=== PATIENT | male | born 1935 | race Caucasian/White ===

== ENCOUNTER 2017-07-29 07:05 | Day surgery (SDC) | payer MEDICARE ==
--- NOTE | 2017-07-22 16:03 | HP ---
AMENDED REPORT NOW INCLUDES COSIGNER DESIGNATION - ESIGNED BEFORE ADJUSTMENT CC: Willie Fields III, MD * HISTORY AND PHYSICAL: DATE OF ADMISSION/SURGERY: 07/29/17 ATTENDING SURGEON: Les Barker MD * (DICTATED BY JOVANY MARTIN) PRIMARY CARE PHYSICIAN: Willie Fields III, MD CHIEF COMPLAINT: Left inguinal hernia. HISTORY OF PRESENT ILLNESS: Mr. Mercado is a pleasant 81-year-old gentleman who is well known to our practice from prior hernia repair. He had a right inguinal hernia repaired about a year and a half ago by Dr. Barker that went very well. The patient states that he was in his usual state of health until 2 weeks ago when he noticed increasing bulge on the left side of his groin. He actually denies feeling any pain; however, he felt a popping sensation every time he coughed, sneezed or bent over. He noticed increasing bulge in the area as well that he is able to push back inside with no significant pain noted. He denies any nausea, vomiting, changes in the bowel habits. He does relate these symptoms to exactly the same presentation he had a year and a half ago when he had his right inguinal hernia repair done. He, otherwise is a remarkably healthy 81-year-old gentleman despite his past medical history that includes prostate cancer as well as lymphoma. He was seen earlier this week by Dr. Barker and found to have reducible left inguinal hernia on exam for which he was scheduled on a later date for elective hernia repair. PAST MEDICAL HISTORY: Significant for: 1. Remote history of prostate cancer for which he had prostatectomy as well as radiation therapy. 2. He also has a history of lymphoma for which he received chemotherapy as well. 3. Also, he has history of hypothyroidism. 4. Degenerative joint disease. 5. Impaired fasting glycemia. PAST SURGICAL HISTORY: Significant for prostatectomy. CURRENT MEDICATIONS: His medications at home include levothyroxine 100 mcg once daily. ALLERGIES: He has no known drug allergies. FAMILY HISTORY: He denies any family history of colorectal malignancies. SOCIAL HISTORY: The patient never smoked. 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 He occasionally consumes alcohol. REVIEW OF SYSTEMS: See HPI, otherwise negative. He denies any headache, dizziness, blurred vision, or double vision. No sore throat, cough, shortness of breath, or palpitation. Denies chest pain, back pain, flank pain, dysuria, hematuria, or urinary frequency. He admits to left inguinal hernia, but denies any nausea, vomiting, no recent changes in bowel habits. No fever, chills, night sweats, or recent weight loss. PHYSICAL EXAMINATION GENERAL: He is an extremely pleasant healthy-appearing elderly gentleman, in no acute distress or discomfort at the time of the visit. VITAL SIGNS: His vitals today revealed blood pressure of 110/70, pulse of 64, temperature of 97.8, and O2 sat of 97% on room air. HEENT: Sclerae anicteric. PERRLA. EOMs intact. Oropharynx is pink and moist with no exudate. NECK: Supple. Trachea midline. No cervical adenopathy, thyromegaly, or JVD. LUNGS: Clear to auscultation bilaterally. No rales, wheezes, or rhonchi. HEART: Regular rate and rhythm. Normal S1 and S2 without rubs, murmurs, or gallops. BACK: Normal curvature. No CVA tenderness. ABDOMEN: Soft, nontender, and nondistended. There is a left inguinal hernia noted with the patient lying down that was easily reducible and nontender. Again, the patient was examined in a standing position and hernia was noted again, moderate size, easily reducible and nontender. There is no scrotal swelling, tenderness or ecchymosis. No other hernias or masses noted. There is an old scar at lower midline from prior prostatectomy with no evidence of ventral hernia. NEUROLOGIC: Grossly intact. EXTREMITIES: Without cyanosis, clubbing, or edema. RECTAL: Deferred at this time. IMPRESSION: An elderly gentleman with reducible left inguinal hernia. PLAN: The patient is scheduled for an open left inguinal hernia repair with mesh by Dr. Barker. The rationale, indications, risks, and benefits of surgery were discussed with him today. Risks include but not limited to infection, bleeding, or injury to adjacent structures. The patient seems to understand and wishes to proceed as outlined. We will follow him up one week postoperatively. JOVANY MARTIN [id number]/[facility] #: [id number] [facility] HOSPITALDavis
[~2017-07-29 07:05] MED LIST: Buffered Lidocaine 0.9% SYRIN* 5 ML/SYR SYRINGE INTRADERM ONE; Ibuprofen TAB* 400 MG PO ONE; Sodium Citrate/Citric Acid* 15 ML UDC PO ONE
[2017-07-29] MEDS ORDERED: Sodium Citrate/Citric Acid* 15 ML UDC ONE (07:10)
[2017-07-29] MEDS ORDERED: Buffered Lidocaine 0.9% SYRIN* 5 ML/SYR SYRINGE ONE (07:10)
[2017-07-29] MEDS ORDERED: Ibuprofen TAB* 400 MG ONE (07:10)
[2017-07-29] MEDS ORDERED: ceFAZolin 2 GM PREMIX (*) 50 ML IVPB ONE (07:10)
[2017-07-29] MEDS ORDERED: Lidocaine 1% MPF wEPI 200,000* 30 ML SDV ONE (08:17)
[2017-07-29] MEDS ORDERED: Bupivacaine 0.5% SDV PF* 30 ML VIAL ONE (08:18)
[2017-07-29] MEDS ORDERED: fentaNYL* 50 MCG/ML 2 ML VIAL (100 MCG VIAL) ONE (08:47)
[2017-07-29] MEDS ORDERED: Midazolam* 1 MG/ML 5 ML VIAL (5 MG) ONE (08:47)
[2017-07-29] MEDS ORDERED: HYDROcodone/ACETAMIN 5-325 MG* 1 TAB PO PRN (09:40)
--- NOTE | 2017-07-29 09:40 | PN ---
Progress Note - Progress Note Date of Service: 07/29/17 Note: Brief Operative Note: Preop Dx: Left inguinal hernia Postop Dx: same Procedure: open repair LIH w/ mesh Surgeon: Lucero Asst: JOVANY Bruce; PAO Castro Anesthesia: local MAC EBL: none Fluids: 750 ml RL Specimen: Drains: none Findings: dictated
[2017-07-29 10:31] VITALS: BP 146/70
--- NOTE | 2017-07-29 22:26 | OP ---
CC: Dr. Fields * DATE OF OPERATION: 07/29/17 - SDS DATE OF : 31 SURGEON: Les Barker MD. EXPRESS MANAGER: JOVANY Leiva. ANESTHESIOLOGIST: Dr. Collins. ANESTHESIA: LMAC anesthesia. PRE-OP DIAGNOSIS: Left inguinal hernia. POST-OP DIAGNOSIS: Left inguinal hernia. OPERATIVE PROCEDURE: Open repair of left inguinal hernia with mesh. DESCRIPTION OF PROCEDURE: The patient was supine on the operating room table. After adequate intravenous sedation, compression stockings, Che Hugger warmer and intravenous antibiotics, the left groin was clipped and prepped with antiseptic, draped in a sterile fashion. Local infiltrative anesthesia was administered. Approximately 2.5-inch incision was created and carried down to the tissue layers through the external oblique, which was opened in the direction of its fibers. Cord structures were encircled with a Shiva drain and tented upward. Indirect space hernia was identified, dissected free, and reduced and a cone mesh plug was placed into the internal ring, sutured there with 2-0 Polysorb. A second piece of mesh was placed over the inguinal floor, sutured at the tubercle. Tails were split, brought around the cord structures, and tacked down laterally. External oblique was closed overtop with 2-0 Polysorb, Fili' s with 3-0 Polysorb, skin with 4-0 Surgipro followed by a sterile dressing. He tolerated the procedure well, was awakened and brought to Recovery in good condition. No complications. No drains. Estimated blood loss was less than 20 mL. [id number]/[facility] #: [id number] [facility]
== END 2017-07-29 10:47 | disposition home or self-care (01) ==
LOC: OR 07:05
PROVIDERS: ATTEND Surgery
DX: K40.90 Unilateral inguinal hernia, without obstruction or gangrene, not specified as recurrent (principal); E03.9 Hypothyroidism, unspecified; Z85.46 Personal history of malignant neoplasm of prostate; M19.90 Unspecified osteoarthritis, unspecified site; Z85.72 Personal history of non-Hodgkin lymphomas
CPT/HCPCS: A9270-GY; C1781; J0690; J2001; J2250; J3010

== ENCOUNTER 2019-05-02 08:51 | Emergency (ER) | payer MEDICARE ==
[2019-05-02 09:00] VITALS: BP 141/77
--- NOTE | 2019-05-02 10:38 | UC ---
Skin Complaint HPI - HPI Summary HPI Summary: 83 y/o male presents to the urgent care c/o rash x 1 week spreading to abd and buttocks - History of Current Complaint Chief Complaint: UCRash Time Seen by Provider: 05/02/19 10:35 Stated Complaint: RASH Hx Obtained From: Patient Onset/Duration: Sudden Onset, Lasting Weeks - 1 week, Still Present, Worse Since - 2 days w/ a lot of itchiness Skin Exposure Onset/Duration: Weeks Ago - 1 weeks ago outside w/ bushes Timing: Constant Onset Severity: Mild Current Severity: Moderate Pain Intensity: 1 - tederness in the abdomen rash Pain Scale Used: 0-10 Numeric Location: Diffuse - B/L arms, abdomen and buttocks Character: Pruritus, Hives, Redness Aggravating Factor(s): Touch Alleviating Factor(s): Cold, OTC Creams/Salves Associated Signs & Symptoms: Positive: Rash - B/l arms abdomen, buttocks, Tenderness. Negative: Fever, Chills, Drainage, Bruising Related History: Possible Reaction to: Environmental Exposure - Allergy/Home Medications Allergies/Adverse Reactions: Allergies Allergy/AdvReac Type Severity Reaction Status Date / Time No Known Allergies Allergy Verified 05/02/19 09:01 PMH/Surg Hx/FS Hx/Imm Hx Previously Healthy: Yes Endocrine History: Hypothyroidism Cancer History: Prostate Cancer Other Cancer History: Non hodgekin lymphoma - Surgical History Surgical History: Yes Surgery Procedure, Year, and Place: PROSTATECTOMY 2001 [facility] [place] ;. CATARACTS REMOVED [place] ;. HERNIA REPAIR [facility] [place] ;. [place] [facility] ; - Family History Known Family History: Negative: Cardiac Disease, Hypertension, Diabetes - Social History Occupation: Retired Lives: With Family Alcohol Use: Weekly Alcohol Amount: 2 BEERS PER DAY Substance Use Type: None Smoking Status (MU): Never Smoked Tobacco Have You Smoked in the Last Year: No Review of Systems All Other Systems Reviewed And Are Negative: Yes Constitutional: Positive: Negative Skin: Positive: Rash - itchy rash in B/l arms, abdomen and buttocks Eyes: Positive: Negative ENT: Positive: Negative Respiratory: Positive: Negative Cardiovascular: Positive: Negative Gastrointestinal: Positive: Negative Genitourinary: Positive: Negative Motor: Positive: Negative Neurovascular: Positive: Negative Musculoskeletal: Positive: Negative Neurological: Positive: Negative Psychological: Positive: Negative Is Patient Immunocompromised?: No Physical Exam - Summary Physical Exam Summary: Vital Signs Reviewed: Yes General: well appearing, well nourished in no acute apparent pain distress, sitting comfortably on examining table Eye Exam: Normal Eyes: Positive: Conjunctiva Clear - PERRLA< EOMI, fundi grossly normal ENT: Positive: Normal ENT inspection, Hearing grossly normal, Pharynx normal, TMs normal Neck: Positive: Supple, Nontender, No Lymphadenopathy Respiratory: Positive: Chest non-tender, Lungs clear, Normal breath sounds, No respiratory distress Cardiovascular: Positive: RRR, No Murmur, Pulses Normal, Brisk Capillary Refill Abdomen Description: Positive: Nontender, No Organomegaly, Soft. Negative: CVA Tenderness (R), CVA Tenderness (L) Bowel Sounds: Positive: Present Musculoskeletal: Positive: Strength Intact, ROM Intact, No Edema Neurological: Positive: Alert, Muscle Tone Normal Psychological Exam: Normal Skin: Positive: Positive B/L arms and buttocks w/ scattered erythematous discrete papules and vesicles, particularly in linear streaks w/ mild signs of excoriation, no drainage observed, non tender to palpation. Positive left side of abdomen w/ similar rash but co-infected w/ erythematous patch w/ indistinct borders, warm and tender to palpation, no drainage observed. pulses WNL, capillary refill brisk, sensation WNL. Triage Information Reviewed: Yes Vital Signs: Initial Vital Signs Temp 98.8 F 05/02/19 08:57 Pulse 78 05/02/19 08:57 Resp 17 05/02/19 08:57 BP 141/77 05/02/19 08:57 Pulse Ox 100 05/02/19 08:57 Course/Dx - Differential Diagnoses - Skin Complaint Differential Diagnoses: Abscess, Cellulitis, Contact Dermatitis, Local Allergic Reaction, MRSA, Poison Doreen, Poison [place], Tick Born Illness, Urticaria - Diagnoses Provider Diagnosis: Contact dermatitis, Cellulitis of abdominal wall, Elevated BP without diagnosis of hypertension Discharge - Sign-Out/Discharge Documenting (check all that apply): Patient Departure - d/c home All imaging exams completed and their final reports reviewed: No Studies - Discharge Plan Condition: Stable Disposition: HOME Prescriptions: Cephalexin CAP* [Keflex CAP*] 500 mg PO TID #21 cap diPHENhydraMINE PO* [Benadryl PO 25 MG TAB*] 25 mg PO TID PRN #21 tab PRN Reason: itchiness Triamcinolone 0.1% CREAM(NF) [Kenalog Cream 0.1%(NF)] 1 applic TOPICAL BID #1 tube Patient Education Materials: Contact Dermatitis (ED), Cellulitis (ED) Referrals: Willie Fields MD [Primary Care Provider] - 3 Days Jess Wharton [Medical Doctor] - 1 Week Additional Instructions: 1-Please take full course of Antibiotic. Take yogurts w/ probiotics or culturelle to protect your GI system 2- If redness and swelling doubles in size in the rash in the abdomen despite taking antibiotic and fever develops please go to the ER immediately. 3- Apply Traimcinolone topical cream to alleviate rash and avoid sun exposure 4- Take Benadryl PO as directed to alleviate itchiness. 5-Please F/u with your PCP or Classified [employer] Dr Wharton in 3 days if not improvment of rash for further evaluation and treatment. 6- Your BP is elevated today. please decrease salt in your diet, monitor BP and if it continues to be elevated please f/u with your PCP for further management. - Billing Disposition and Condition Condition: STABLE Disposition: Home
== END 2019-05-02 11:00 | disposition home or self-care (01) ==
LOC: UCEAST 08:51
DX: L25.9 Unspecified contact dermatitis, unspecified cause (principal); L03.311 Cellulitis of abdominal wall; R03.0 Elevated blood-pressure reading, without diagnosis of hypertension; E03.9 Hypothyroidism, unspecified; Z85.46 Personal history of malignant neoplasm of prostate; Z85.72 Personal history of non-Hodgkin lymphomas
CPT/HCPCS: 99212; G0463